=== PATIENT | male | born 1985 | race Caucasian/White ===

== ENCOUNTER 2016-07-04 13:20 | Emergency (ER) | payer SELFPAY ==
[2016-07-04 13:35] VITALS: BP 145/82
--- NOTE | 2016-07-04 13:43 | UC ---
Respiratory Complaint HPI - HPI Summary HPI Summary: COUGH X 1 DAY + CHEST TIGHTNESS, NASAL CONGESTION , FEVER, CHILLS, SEVER BODY ACHES AND SOB - History of Current Complaint Chief Complaint: UC Stated Complaint: DIFFICULTY BREATHING,BODY ACHES,DIZZINESS Time Seen by Provider: 07/04/16 13:25 Hx Obtained From: Patient Onset/Duration: Gradual Onset, Lasting Days - 1, Still Present Timing: Constant Severity Initially: Severe Severity Currently: Severe Character: Cough: Nonproductive Aggravating Factors: Exertion, Deep Breaths Associated Signs And Symptoms: Positive: Dyspnea, Fever, Chills, Pleuritic Chest Pain, URI, Nasal Congestion. Negative: Wheezing - Allergies/Home Medications Allergies/Adverse Reactions: Allergies Allergy/AdvReac Type Severity Reaction Status Date / Time No Known Allergies Allergy Verified 07/04/16 13:26 PMH/Surg Hx/FS Hx/Imm Hx Previously Healthy: Yes - Surgical History Surgical History: Yes Surgery Procedure, Year, and Place: HERNIA REPAIR - Family History Known Family History: Negative: Diabetes - Social History Alcohol Use: Daily Alcohol Amount: 5 BEERS AFTER WORK Substance Use Type: None Substance Use Comment - Amount & Last Used: daily Smoking Status (MU): Heavy Every Day Tobacco Smoker Type: Cigarettes Amount Used/How Often: 1/2 ppd Length of Time of Smoking/Using Tobacco: 13 yrs Have You Smoked in the Last Year: Yes Household Exposure Type: Cigarettes - Immunization History Most Recent Influenza Vaccination: DENIES Review of Systems Constitutional: Fever, Chills, Fatigue Skin: Negative Eyes: Negative ENT: Nasal Discharge Respiratory: Shortness Of Breath, Cough Cardiovascular: Negative Gastrointestinal: Negative Genitourinary: Negative All Other Systems Reviewed And Are Negative: Yes Physical Exam Triage Information Reviewed: Yes Appearance: Well-Appearing, No Pain Distress, Thin Vital Signs: Initial Vital Signs Temp 98.8 F 07/04/16 13:27 Pulse 104 07/04/16 13:27 Resp 20 07/04/16 13:27 BP 145/82 07/04/16 13:27 Pulse Ox 100 07/04/16 13:27 Vital Signs Reviewed: Yes Eyes: Positive: Conjunctiva Clear ENT: Positive: Normal ENT inspection, Hearing grossly normal, Pharynx normal, Nasal drainage, TMs normal Neck: Positive: Supple, Nontender, No Lymphadenopathy Respiratory Exam: Normal Respiratory: Positive: Chest non-tender, Lungs clear, Normal breath sounds Cardiovascular: Positive: Tachycardia Abdominal Exam: Normal Abdomen Description: Positive: Nontender, Soft Bowel Sounds: Positive: Present Neurological: Positive: Alert Skin Exam: Normal UC Diagnostic Evaluation - Laboratory O2 Sat by Pulse Oximetry: 100 Respiratory Course/Dx - Differential Dx/Diagnosis Provider Diagnoses: VIRAL BRONCHITIS Discharge - Discharge Plan Condition: Stable Disposition: HOME Patient Education Materials: Acute Bronchitis (ED) Referrals: Non Staff,Doctor [Primary Care Provider] - If Needed
== END 2016-07-04 14:12 | disposition home or self-care (01) ==
LOC: UCCORT 13:20
DX: J20.8 Acute bronchitis due to other specified organisms (principal); F17.210 Nicotine dependence, cigarettes, uncomplicated
CPT/HCPCS: 87502; 99211; G0463

== ENCOUNTER 2016-12-03 15:21 | Emergency (ER) | payer SELFPAY ==
[2016-12-03 15:51] VITALS: BP 127/78
--- NOTE | 2016-12-03 16:07 | UC ---
General HPI - HPI Summary HPI Summary: 1. laceration to the right middle knuck, happened 18 hours ago, not bleeding, 1 inch flap of skin not adhered. no swelling, movement not affected 2. Back complaint, did have hernia repair a while back, was seen in ER a few days ago and no acute process noted. - History of Current Complaint Chief Complaint: UCBackPain Stated Complaint: RIGHT HAND INJURY/BACK PAIN Time Seen by Provider: 12/03/16 15:36 Hx Obtained From: Patient Onset/Duration: Sudden Onset, Lasting Days Timing: Constant Onset Severity: Mild Current Severity: Mild - Allergy/Home Medications Allergies/Adverse Reactions: Allergies Allergy/AdvReac Type Severity Reaction Status Date / Time No Known Allergies Allergy Verified 12/03/16 15:51 PMH/Surg Hx/FS Hx/Imm Hx Previously Healthy: Yes - Surgical History Surgical History: Yes Surgery Procedure, Year, and Place: RIGHT INGUINAL HERNIA REPAIR [facility] ABOUT 2015 - Family History Known Family History: Negative: Diabetes - Social History Alcohol Use: Daily Alcohol Amount: 12 BEERS Substance Use Type: Excessive Caffeine Substance Use Comment - Amount & Last Used: 1/2 pot coffee daily Smoking Status (MU): Heavy Every Day Tobacco Smoker Type: Cigarettes Amount Used/How Often: 1/2 ppd Length of Time of Smoking/Using Tobacco: 13 yrs Have You Smoked in the Last Year: Yes Household Exposure Type: Cigarettes - Immunization History Most Recent Influenza Vaccination: DENIES Most Recent Tetanus Shot: UTD Review of Systems Constitutional: Negative Skin: Other - laceration Eyes: Negative ENT: Negative Respiratory: Negative Cardiovascular: Negative Gastrointestinal: Negative Genitourinary: Negative Motor: Negative Musculoskeletal: Arthralgia, Myalgia Neurological: Negative Psychological: Negative All Other Systems Reviewed And Are Negative: Yes Physical Exam Triage Information Reviewed: Yes Appearance: Ill-Appearing, Pain Distress, Thin Vital Signs: Initial Vital Signs Temp 98.7 F 12/03/16 15:30 Pulse 96 12/03/16 15:30 Resp 18 12/03/16 15:30 BP 127/78 12/03/16 15:30 Vital Signs Reviewed: Yes Eye Exam: Normal ENT Exam: Normal Dental Exam: Normal Neck exam: Normal Respiratory Exam: Normal Respiratory: Positive: Chest non-tender, Lungs clear, Normal breath sounds Cardiovascular Exam: Normal Cardiovascular: Positive: RRR, No Murmur, Pulses Normal Abdomen Description: Positive: CVA Tenderness (R) - neg, CVA Tenderness (L) - neg, Other: - small lump noted over the right lower abdomen, over the scar from hernia surgery, Bowel Sounds: Positive: Present Musculoskeletal: Positive: No Edema, Strength Limited @ - lright leg, ROM Limited @ - lumbar flx and ext, hip flx and ext Neurological Exam: Normal Neurological: Positive: Alert, Muscle Tone Normal Psychological Exam: Normal Skin Exam: Normal Course/Dx - Course Course Of Treatment: hx obtained, exam performed ,meds reviewed, laceration steri stripped 3 strips, CT records from [facility] were not available. CONSULTED Dr Varner and patient is in agreement to visit [facility] for further evaluation and US for hernia complications. - Differential Dx - Multi-Symptom Provider Diagnoses: testicular pain, hernia Discharge - Discharge Plan Condition: Stable Disposition: HOME Prescriptions: Cephalexin CAP* [Keflex CAP*] 500 mg PO BID #14 cap Patient Education Materials: Testicle Pain (ED) Additional Instructions: 1. I recommend follow up as soon as possible at [facility]. they have been called and are awaiting your arrival.
--- NOTE | 2016-12-03 16:40 | RAD ---
HISTORY: Low back pain with radiculopathy COMPARISONS: None VIEWS: 5 , Frontal, lateral, coned-down lateral sacral, and bilateral oblique views of the lumbar spine. FINDINGS: ALIGNMENT: The alignment is normal. VERTEBRAL BODIES: The vertebral body heights are normal. The interpedicular distances are normal. JOINTS: The facet joints are normal. INTERVERTEBRAL DISCS: The intervertebral disc heights are normal. SOFT TISSUE: Unremarkable. OTHER: The pelvis is unremarkable. The lung bases are clear. IMPRESSION: UNREMARKABLE RADIOGRAPHS OF THE LUMBAR SPINE
== END 2016-12-03 17:17 | disposition home or self-care (01) ==
LOC: UCCORT 15:21
DX: N50.819 Testicular pain, unspecified (principal); K40.91 Unilateral inguinal hernia, without obstruction or gangrene, recurrent; M54.5 Low back pain; S61.212A Laceration without foreign body of right middle finger without damage to nail, initial encounter; X58.XXXA Exposure to other specified factors, initial encounter; Y93.9 Activity, unspecified; Y92.9 Unspecified place or not applicable; F17.210 Nicotine dependence, cigarettes, uncomplicated
CPT/HCPCS: 72110; 81003; 87086; 87491; 87591; 99212; G0463

== ENCOUNTER 2018-02-25 07:49 | Emergency (ER) | payer SELFPAY ==
[2018-02-25 08:13] VITALS: BP 170/100
--- NOTE | 2018-02-25 08:19 | UC ---
General HPI - HPI Summary HPI Summary: 32 year old male with complaints of bilateral arm and hand numbness. States has had this intermittently for past 2 years. Often notices onset when he lifts his arms over his head. Symptoms typically last a few hours and resolve. Currently been having symptoms for 2 days. He states he sometimes has chest pain and shortness of breath with symptoms but none presently. Also reports occasional neck and back pain. 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 He smokes 1/2 PPD and 1/2-1 can of smokeless tobacco daily. Drinks >6 pack of beer daily. Smokes marijuana daily. Drinks at least 1 pot of coffee daily. Significant family history for CAD, HTN, CKD. - History of Current Complaint Chief Complaint: UCUpperExtremity Stated Complaint: HAND/ARM NUMBNESS,TINGLING,DIZZY/CHEST PAIN Time Seen by Provider: 02/25/18 07:59 Hx Obtained From: Patient Onset/Duration: Lasting Days - 2 Current Severity: Moderate Pain Intensity: 8 - Allergy/Home Medications Allergies/Adverse Reactions: Allergies Allergy/AdvReac Type Severity Reaction Status Date / Time No Known Allergies Allergy Verified 02/25/18 08:06 Home Medications: Home Medications NK [No Home Medications Reported] 02/25/18 [History Confirmed 02/25/18] PMH/Surg Hx/FS Hx/Imm Hx Previously Healthy: Yes - Denies significant PMH - Surgical History Surgical History: Yes Surgery Procedure, Year, and Place: Left Inguinal Herniorrhaphy, 12/25, [place] ; Right Inguinal Herniorrhaphy, 06/22, [place] - Family History Known Family History: Positive: Cardiac Disease, Hypertension, Other - CKD Negative: Diabetes - Social History Occupation: Employed Full-time Lives: With Family Alcohol Use: 6+ Daily Alcohol Amount: 12 BEERS Substance Use Type: Excessive Caffeine, Marijuana Substance Use Comment - Amount & Last Used: Marijuana and a pot of Coffee Daily Smoking Status (MU): Heavy Every Day Tobacco Smoker Type: Cigarettes, Smokeless Tobacco Amount Used/How Often: 1/2 PPD and 1/2-1 Can Daily Length of Time of Smoking/Using Tobacco: Since Age 14 Have You Smoked in the Last Year: Yes Household Exposure Type: Cigarettes - Immunization History Most Recent Influenza Vaccination: DENIES Most Recent Tetanus Shot: UTD Review of Systems All Other Systems Reviewed And Are Negative: Yes Constitutional: Negative: Fever, Chills Skin: Negative: Rash Respiratory: Positive: Shortness Of Breath. Negative: Cough Cardiovascular: Positive: Chest Pain. Negative: Palpitations Gastrointestinal: Negative: Abdominal Pain, Vomiting, Diarrhea, Nausea Motor: Negative: Decreased ROM, Weakness Neurovascular: Positive: Decreased Sensation. Negative: Decreased Pulses Musculoskeletal: Positive: Other: - See HPI Neurological: Positive: Paresthesia Is Patient Immunocompromised?: No Physical Exam Triage Information Reviewed: Yes Appearance: No Pain Distress, Well-Nourished Vital Signs: Initial Vital Signs Temp 97.9 F 02/25/18 08:06 Pulse 84 02/25/18 08:06 Resp 20 02/25/18 08:06 BP 170/100 02/25/18 08:06 Pulse Ox 98 02/25/18 08:06 Vital Signs Reviewed: Yes Neck: Positive: Supple, Nontender Respiratory: Positive: Chest non-tender, Lungs clear, Normal breath sounds, No respiratory distress. Negative: Crackles, Rhonchi, Wheezing Cardiovascular: Positive: RRR, No Murmur, Pulses Normal, Brisk Capillary Refill Abdomen Description: Positive: Nontender, No Organomegaly, Soft. Negative: Distended, Guarding Musculoskeletal: Positive: Strength Intact, ROM Intact - Full ROM bilateral shoulders., Other: - No crepitus or tenderness to palplation of bilateral shoulders. Neurological: Positive: Alert, Other: - Reports decreased sensation bilateral hands. Skin Exam: Normal Diagnostics - EKG Cardiac Rate: NL - Rate 66 Cardiac Rhythm: Sinus: Normal Ectopy: None ST Segment: Normal Summary of EKG Findings: NSR. Low voltage P wave. T-wave inversion Lead III. Poor R-wave progression in V1-3. No previous EKG for comparison. Course/Dx - Course Course Of Treatment: 32 year old male presents for bilateral arm and hand numbness and tingling x 2 days. States he has had intermittent episodes of this for the past 2 years that will last hours and resolve on its own. Typically occurs with hold his arms over his head. He does report that he has noted chest pain and shortness of breath with past episodes but none presently. Exam unremarkable excpet for some decreased sensation to bilateral hands. 12 lead EKG showed NSR with non-specific changes. No previous EKG available. Hypertensive at triage. His history and physical are suggestive of a musculoskeletal vs peripheral neuropathic origin. He has significant lifestyle and family risk factors for CAD therefore recommending urgent follow up with the [facility] for further evaluation. Warning symptoms requiring immediate evaluation in the ED were reviewed with patient and significant other. Verbalize understanding and agree with POC. - Differential Dx - Multi-Symptom Provider Diagnoses: Bilateral arm numbness, elevated blood pressure reading Discharge - Sign-Out/Discharge Documenting (check all that apply): Patient Departure All imaging exams completed and their final reports reviewed: No Studies - Discharge Plan Condition: Stable Disposition: HOME Patient Education Materials: Paresthesia (ED), Hypertension (ED) Referrals: No Primary Care Phys,NOPCP [Primary Care Provider] - [facility] [Outside] - 5 Days Additional Instructions: Your symptoms are likely from a condition called shoulder impingement syndrome based on your history and exam however should be further evaluated. The EKG performed in the clinic today showed some non-specific changes that should be further evaluated. Your blood pressure was also elevated in the clinic today. Based on these findings you should follow up with the [facility] within the next 5 days for this evaluation. Seek immediate medical attention in the emergency room if you develop fever greater than 100.5 F, have chest pain, feel like your heart is racing or skipping beats, shortness of breath, you become weak or dizzy, or have any worsening of symptoms. - Billing Disposition and Condition Condition: STABLE Disposition: Home - Attestation Statements Provider Attestation: I was available for consult. This patient was seen by the [facility]. The patient was not presented to, seen by, or examined by me. -Lou
== END 2018-02-25 08:50 | disposition home or self-care (01) ==
LOC: UCCORT 07:49
DX: R20.0 Anesthesia of skin (principal); R03.0 Elevated blood-pressure reading, without diagnosis of hypertension; F17.210 Nicotine dependence, cigarettes, uncomplicated; F17.290 Nicotine dependence, other tobacco product, uncomplicated; Z82.49 Family history of ischemic heart disease and other diseases of the circulatory system; Z84.1 Family history of disorders of kidney and ureter
CPT/HCPCS: 93005; 99211; G0463